=== PATIENT | female | born 1990 ===

== ENCOUNTER 2023-02-23 11:39 | Outpatient (CLI) | payer OTHER | END 2023-02-23 15:10 | disposition home or self-care (01) | LOC: PRENATAL 11:39 | PROVIDERS: ATTEND Obstetrics & Gynecology Maternal & Fetal Medicine | DX: O35.9XX0 Maternal care for (suspected) fetal abnormality and damage, unspecified, not applicable or unspecified (principal); O35.3XX0 Maternal care for (suspected) damage to fetus from viral disease in mother, not applicable or unspecified; O44.00 Complete placenta previa NOS or without hemorrhage, unspecified trimester; Z3A.20 20 weeks gestation of pregnancy ==

== ENCOUNTER 2023-04-22 09:14 | Outpatient (CLI) | payer OTHER | END 2023-04-22 09:22 | disposition home or self-care (01) | LOC: PRENATAL 09:14 | PROVIDERS: ATTEND Obstetrics & Gynecology Maternal & Fetal Medicine | DX: O26.849 Uterine size-date discrepancy, unspecified trimester (principal); O44.00 Complete placenta previa NOS or without hemorrhage, unspecified trimester; Z3A.28 28 weeks gestation of pregnancy ==

== ENCOUNTER 2023-05-31 10:35 | Outpatient (CLI) | payer OTHER | END 2023-05-31 10:36 | disposition home or self-care (01) | LOC: PRENATAL 10:35 | PROVIDERS: ATTEND Obstetrics & Gynecology Maternal & Fetal Medicine | DX: O26.849 Uterine size-date discrepancy, unspecified trimester (principal); O36.8199 Decreased fetal movements, unspecified trimester, other fetus; Z3A.34 34 weeks gestation of pregnancy ==

== ENCOUNTER 2023-07-01 08:00 | Inpatient (IN) | payer OTHER ==
[~2023-07-01] VITALS: Ht 162.6 cm; Wt 64.9 kg
[2023-07-01 09:31] LABS: HEMATOCRIT 30.9 % (36.0-45.00); MEAN CORPUSCULAR HEMOGLOBIN 34.8 pg (27.00-32.0); MEAN CORPUSCULAR HGB CONC 35.5 g/dl (32.0-36.0); RED BLOOD COUNT 3.15 M/uL (4.00-6.00)
[2023-07-01 09:33] LABS: URINE APPEARANCE Clear; URINE BILIRRUBIN Negative (NEGATIVE); URINE BLOOD Negative; URINE COLOR Yellow; URINE GLUCOSE Negative (NEGATIVE); URINE LEUKOCYTE Small; URINE NITRATE Negative; URINE PROTEIN Negative (NEGATIVE)
[2023-07-01 09:36] LABS: URINE BACTERIA 714.1 uL (0.0-1933); URINE EPITHELIAL CELLS 22.3 uL (0.0-38.8)
[2023-07-01 09:38] LABS: URINE RBC 0.5 uL (0.0-20.8)
[2023-07-01 09:57] LABS: PLATELET COUNT 155 K/uL (150-450)
[2023-07-01 10:11] LABS: ALBUMIN 3.1 gm/dL (3.4-5.0); BILIRUBIN TOTAL 0.49 mg/dL (0.3-1.2); CREATININE SERUM 0.5 mg/dL (0.55-1.02); GFR 142.09; GLOBULINA 3.4 G/DL (2.4-3.5); POTASSIUM 3.63 mEq/L (3.5-5.1); TOTAL PROTEIN 6.5 gm/dL (6.4-8.2)
[2023-07-01 10:25] LABS: INR 0.99; PARTIAL THROMBOPLASTIN TIME 26.5 SECONDS (22.0-34.0); PROTHROMBIN TIME 10.4 SECONDS (9.0-11.5)
== END 2023-07-03 15:56 | disposition home or self-care (01) | DRG 768 ==
LOC: LDR 08:00 → OB/GYN 15:37
PROVIDERS: ADMIT Obstetrics & Gynecology; ATTEND Obstetrics & Gynecology
PROC: 10E0XZZ Delivery of Products of Conception, External Approach (ICD-10-PCS; principal; 2023-07-01)
PROC: 0DQR0ZZ Repair Anal Sphincter, Open Approach (ICD-10-PCS; 2023-07-01)
PROC: 4A1HXCZ Monitoring of Products of Conception, Cardiac Rate, External Approach (ICD-10-PCS; 2023-07-01)
DX: O70.21 Third degree perineal laceration during delivery, IIIa (principal); Z37.0 Single live birth; Z3A.39 39 weeks gestation of pregnancy; Z20.822 Contact with and (suspected) exposure to COVID-19